=== PATIENT | male | born 1995 | race Caucasian/White ===

== ENCOUNTER 2018-02-16 05:05 | Day surgery (SDC) | payer MEDICAID ==
[~2018-02-16] VITALS: Ht 172.7 cm; Wt 68.0 kg
[~2018-02-16 05:05] MED LIST: CENTRUM MEN'S1 EACH PO
[2018-02-16 06:02] VITALS: BP 131/64; Ht 172.7 cm; Wt 68.0 kg
== END 2018-02-16 09:10 | disposition home or self-care (01) ==
LOC: D.OPS 05:05 → D.PAN 07:30 → D.OPS 07:30
DX: M79.5 Residual foreign body in soft tissue (principal); Z01.812 Encounter for preprocedural laboratory examination